=== PATIENT | female | born 1950 | race American Indian/Alaskan Native ===

== ENCOUNTER 2016-04-30 11:26 | Emergency (ER) | payer MEDICARE, BC ==
[2016-04-30 12:44] LABS: Hematocrit 43.2 % (30.3-42.9); Hemoglobin 14.1 gm/dl (10.1-14.3); Mean Corpuscular HGB Conc 33 % (30-34); Mean Corpuscular Hemoglobin 32 pg (28-32); Mean Corpuscular Volume 98 fl (79-97); Platelet Count 244 K/mm3 (140-440); Red Blood Count 4.41 M/mm3 (3.65-5.03); Red Cell Distribution Width 13.3 % (13.2-15.2); White Blood Count 4.4 K/mm3 (4.5-11.0)
[2016-04-30 12:54] LABS: Anion Gap 20 mmol/L; Blood Urea Nitrogen 11 mg/dL (7-17); Calcium 9.3 mg/dL (8.4-10.2); Carbon Dioxide 25 mmol/L (22-30); Glucose 87 mg/dL (65-100); Potassium 3.5 mmol/L (3.6-5.0); Sodium 143 mmol/L (137-145)
[2016-04-30 13:00] LABS: INR 0.94 (0.87-1.13)
[2016-04-30 13:01] LABS: Partial Thromboplastin Time 30.9 Sec. (24.2-36.6)
[2016-04-30 13:07] LABS: Alanine Aminotransferase 9 units/L (7-56); Albumin 4.2 g/dL (3.9-5); Albumin/Globulin Ratio 1.4 %; Alkaline Phosphatase 81 units/L (35-129); Bilirubin,Direct < 0.2 mg/dL (0-0.2); Bilirubin,Total 0.3 mg/dL (0.1-1.2); Magnesium 2.1 mg/dL (1.7-2.3); Total Protein 7.3 g/dL (6.3-8.2)
--- NOTE | 2016-04-30 13:08 | Cat Scan Report ---
CT HEAD WITHOUT CONTRAST: HISTORY: Syncope. TECHNIQUE: Sequential CT images without contrast. FINDINGS: Images obtained show bilateral prominence of the sulci and ventricles. There are no abnormal intra- or extra-axial blood or fluid collections. There are no focal masses or evidence of mass effect. The easley white matter differentiation appears within normal limits. 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 The posterior fossa structures including the fourth ventricle, cerebellum, and brainstem appear normal. IMPRESSION: Evidence of atrophy and microangiopathic ischemic disease. No acute intracranial process noted.
[2016-04-30 13:16] LABS: Urine Drugs of Abuse Note Disclamer
[2016-04-30 13:33] LABS: Bilirubin,Urine NEG (Negative); Blood,Urine NEG (Negative); Ketones,Urine NEG (Negative); Leukocyte Esterase,Urine NEG (Negative); Mucus,Urine FEW /HPF; Nitrite,Urine NEG (Negative); Protein,Urine <15 mg/dL mg/dL (Negative); Urobilinogen,Urine < 2.0 mg/dL (<2.0)
--- NOTE | 2016-04-30 13:50 | Emergency Department Report ---
ED General Adult HPI - General Chief complaint: Dizziness Stated complaint: FALL/LEG PAIN /UNABLE TO WALK Time Seen by Provider: 04/30/16 12:02 Source: patient Mode of arrival: Stretcher Limitations: No Limitations - History of Present Illness Initial comments: The patient states that she had a "loss of equilibrium" while she was walking this morning. She did not pass out. She did not hurt herself. Oddly when she was asked if she has had this occur before she stated no. She has a history of multiple sclerosis. When asked how her multiple sclerosis has affected her she stated directly there after "it's affected my equilibrium". In any case the patient has completely returned to her baseline. She is not complaining of any difficulty with speech compared with her baseline nor her coordination. She denies headache. She denies focal weakness or numbness. She has not been recently ill. -: Gradual Consistency: now resolved Improves with: none Worsens with: none Associated Symptoms: denies other symptoms Treatments Prior to Arrival: none - Related Data Home Medications Medication Instructions Recorded Confirmed Last Taken Dimethyl Fumarate [Tecfidera] 240 mg PO BID 04/30/16 04/30/16 Unknown Meloxicam [Meloxicam] 7.5 mg PO DAILY PRN 04/30/16 04/30/16 Unknown traMADol [Ultram 50 MG tab] 50 mg PO DAILY PRN 04/30/16 04/30/16 Unknown Allergies Allergy/AdvReac Type Severity Reaction Status Date / Time No Known Allergies Allergy Unverified 04/30/16 11:55 ED Review of Systems ROS: Stated complaint: FALL/LEG PAIN /UNABLE TO WALK Other details as noted in HPI Constitutional: denies: chills, fever Eyes: denies: eye pain, eye discharge, vision change ENT: denies: ear pain, throat pain Respiratory: denies: cough, shortness of breath, wheezing Cardiovascular: denies: chest pain, palpitations Endocrine: no symptoms reported Gastrointestinal: denies: abdominal pain, nausea, diarrhea Genitourinary: denies: urgency, dysuria, discharge Musculoskeletal: denies: back pain, joint swelling, arthralgia Skin: denies: rash, lesions Neurological: as per HPI. denies: headache, weakness, numbness, paresthesias, confusion, abnormal gait, vertigo Psychiatric: denies: anxiety, depression Hematological/Lymphatic: denies: easy bleeding, easy bruising ED Past Medical Hx - Past Medical History Additional medical history: muscular sclerosis-2013 - Surgical History Additional Surgical History: right knee total,2 c-sections - Social History Smoking Status: Never Smoker Substance Use Type: None - Medications Home Medications: Home Medications Medication Instructions Recorded Confirmed Last Taken Type Dimethyl Fumarate [Tecfidera] 240 mg PO BID 04/30/16 04/30/16 Unknown History Meloxicam [Meloxicam] 7.5 mg PO DAILY PRN 04/30/16 04/30/16 Unknown History traMADol [Ultram 50 MG tab] 50 mg PO DAILY PRN 04/30/16 04/30/16 Unknown History ED Physical Exam - General Limitations: No Limitations General appearance: alert, in no apparent distress - Head Head exam: Present: atraumatic, normocephalic - Eye Eye exam: Present: normal appearance, PERRL, EOMI. Absent: scleral icterus - ENT ENT exam: Present: mucous membranes moist - Neck Neck exam: Present: normal inspection - Respiratory Respiratory exam: Present: normal lung sounds bilaterally. Absent: respiratory distress - Cardiovascular Cardiovascular Exam: Present: regular rate, normal rhythm. Absent: systolic murmur, diastolic murmur, rubs, gallop - GI/Abdominal GI/Abdominal exam: Present: soft, normal bowel sounds. Absent: distended, tenderness, guarding, rebound, rigid - Extremities Exam Extremities exam: Present: normal inspection - Back Exam Back exam: Present: normal inspection - Neurological Exam Neurological exam: Present: alert, oriented X3, CN II-XII intact, normal gait, other (cerebellar testing was normal). Absent: motor sensory deficit - Psychiatric Psychiatric exam: Present: normal mood, flat affect - Skin Skin exam: Present: warm, dry, intact, normal color. Absent: rash ED Course Vital Signs 04/30/16 11:48 Temperature 98 F Pulse Rate 69 Respiratory 18 Rate Blood Pressure 156/71 O2 Sat by Pulse 99 Oximetry - Reevaluation(s) Reevaluation #1: The patient remained asymptomatic here. I did not detect any criteria for admission. I would recommend that she takes baby aspirin a day and follow-up with her neurologist. 04/30/16 13:50 ED Medical Decision Making - Lab Data Result diagrams: 04/30/16 12:19 04/30/16 12:19 Laboratory Results - last 24 hr 04/30/16 04/30/16 04/30/16 12:19 12:19 12:19 WBC 4.4 L RBC 4.41 Hgb 14.1 Hct 43.2 H MCV 98 H MCH 32 MCHC 33 RDW 13.3 Plt Count 244 PT INR APTT Sodium 143 Potassium 3.5 L Chloride 102.0 Carbon Dioxide 25 Anion Gap 20 BUN 11 Creatinine 0.5 L Estimated GFR > 60 BUN/Creatinine Ratio 22.00 Glucose 87 Calcium 9.3 Magnesium 2.1 Total Bilirubin 0.3 Direct Bilirubin < 0.2 AST 18 ALT 9 Alkaline Phosphatase 81 C-Reactive Protein Total Protein 7.3 Albumin 4.2 Albumin/Globulin Ratio 1.4 Urine Color Urine Turbidity Urine pH Ur Specific [place] Urine Protein Urine Glucose (UA) Urine Ketones Urine Blood Urine Nitrite Urine Bilirubin Urine Urobilinogen Ur Leukocyte Esterase Urine WBC (Auto) Urine RBC (Auto) U Epithel Cells (Auto) Urine Mucus Urine Opiates Screen Urine Methadone Screen Ur Barbiturates Screen Ur Phencyclidine Scrn Ur Amphetamines Screen U Benzodiazepines Scrn Urine Cocaine Screen U Marijuana (THC) Screen Drugs of Abuse Note 04/30/16 04/30/16 04/30/16 12:19 12:20 13:08 WBC RBC Hgb Hct MCV MCH MCHC RDW Plt Count PT 12.5 INR 0.94 APTT 30.9 Sodium Potassium Chloride Carbon Dioxide Anion Gap BUN Creatinine Estimated GFR BUN/Creatinine Ratio Glucose Calcium Magnesium Total Bilirubin Direct Bilirubin AST ALT Alkaline Phosphatase C-Reactive Protein 0.20 Total Protein Albumin Albumin/Globulin Ratio Urine Color Yellow Urine Turbidity Clear Urine pH 6.0 Ur Specific [place] 1.020 Urine Protein <15 mg/dl Urine Glucose (UA) Neg Urine Ketones Neg Urine Blood Neg Urine Nitrite Neg Urine Bilirubin Neg Urine Urobilinogen < 2.0 Ur Leukocyte Esterase Neg Urine WBC (Auto) 2.0 Urine RBC (Auto) 2.0 U Epithel Cells (Auto) 1.0 Urine Mucus Few Urine Opiates Screen Urine Methadone Screen Ur Barbiturates Screen Ur Phencyclidine Scrn Ur Amphetamines Screen U Benzodiazepines Scrn Urine Cocaine Screen U Marijuana (THC) Screen Drugs of Abuse Note 04/30/16 13:08 WBC RBC Hgb Hct MCV MCH MCHC RDW Plt Count PT INR APTT Sodium Potassium Chloride Carbon Dioxide Anion Gap BUN Creatinine Estimated GFR BUN/Creatinine Ratio Glucose Calcium Magnesium Total Bilirubin Direct Bilirubin AST ALT Alkaline Phosphatase C-Reactive Protein Total Protein Albumin Albumin/Globulin Ratio Urine Color Urine Turbidity Urine pH Ur Specific [place] Urine Protein Urine Glucose (UA) Urine Ketones Urine Blood Urine Nitrite Urine Bilirubin Urine Urobilinogen Ur Leukocyte Esterase Urine WBC (Auto) Urine RBC (Auto) U Epithel Cells (Auto) Urine Mucus Urine Opiates Screen Presumptive negative Urine Methadone Screen Presumptive negative Ur Barbiturates Screen Presumptive negative Ur Phencyclidine Scrn Presumptive negative Ur Amphetamines Screen Presumptive negative U Benzodiazepines Scrn Presumptive negative Urine Cocaine Screen Presumptive negative U Marijuana (THC) Screen Presumptive negative Drugs of Abuse Note Disclamer - EKG Data -: EKG Interpreted by Me EKG shows normal: sinus rhythm, intervals, QRS complexes, ST-T waves Rate: normal - EKG Data Interpretation: other (left axis nonspecific changes consider LVH) - Radiology Data Radiology results: report reviewed interpreted by me: CT the head showed no acute process and microangiopathic changes Critical care attestation.: If time is entered above; I have spent that time in minutes in the direct care of this critically ill patient, excluding procedure time. ED Disposition Clinical Impression: Multiple sclerosis, Loss of equilibrium, Dizziness and giddiness Disposition: DISCHARGED TO HOME OR SELFCARE Is pt being admited?: No Does the pt Need Aspirin: No Condition: Stable Instructions: Dizziness (ED) Additional Instructions: I would recommend a baby aspirin daily. You should follow-up with Dr. Crenshaw. Return any further problem acute change or concern. Referrals: LATRELL CRENSHAW MD [Staff Physician] - 3-5 Days PRIMARY CARE, [Primary Care Provider] - 2-3 Days Time of Disposition: 13:53
[2016-04-30 14:09] VITALS: BP 148/80
== END 2016-04-30 14:10 | disposition home or self-care (01) ==
LOC: ED 11:26
DX: G35 Multiple sclerosis (principal); R26.89 Other abnormalities of gait and mobility; R42 Dizziness and giddiness; Z96.651 Presence of right artificial knee joint
CPT/HCPCS: 36415; 70450; 80048; 80074; 80307; 81001; 83735; 85027; 85610; 85730; 86140; 93005; 93010